=== PATIENT | female | born 2000 | race Caucasian/White ===

== ENCOUNTER 2024-08-16 12:17 | Inpatient (IN) | payer SELFPAY ==
[2024-08-16] VITALS (32 sets, daily range): BP systolic 111–133; BP diastolic 64–87; PULSE 76–116; RESP 15–18; TEMP 36.3–37.1; O2SAT 91–100
[2024-08-16] MEDS: Lactated Ringers 1,000 ML 50 ML IV (12:20)
--- NOTE | 2024-08-16 12:30 | PCM.HP.OB ---
HPI - General General Date of Admission: 08/16/24 Date of Service: 08/16/24 Chief Complaint: 41+ Week Intrauterine with Decelerations during Home HPI Narrative ROSY PAULINO, is a 24 F G1, P0 who presents with her hspt tutor. She is at approximately 41+ weeks gestation and was complete at home after starting labor in the middle of the night. She was noted to have some decelerations down to the 60s and given this her hspt tutor brought her to the hospital for further management. She denies any medical problems and has had no ultrasound during her or any other care or lab work done. Chief Executive Officer indicates that her membranes are intact and that she is at 9 cm to complete at present. Maternal Data Information Final TYSON: 08/03/24 Final TYSON Source: LMP Gestational age: 41 weeks 6 days gestation PFSH PFSH no medical history ROS Constitutional Constitutional: Reports systems reviewed and no addt'l complaints, except as documented and as per HPI Vital Signs Vital Signs Vital Signs: Afebrile, vital signs stable Physical Exam Const alert, oriented x3 and no apparent distress Constitutional Narrative: In active labor HEENT normocephalic Neck full ROM Resp normal respiratory effort, no retractions and no use of accessory muscles Cardio regular rate GI GI Narrative: Abdomen size is appropriate for gestational age Extremity normal to inspection, full ROM, no clubbing, cyanosis or edema and no calf tenderness Neuro moves all extremities, no focal motor deficits and no sensory deficits noted Psych mental status grossly normal, affect normal, speech normal and activity/motor behavior normal Labs Labs Labs: No Data to Display Assessment & Plan (1) No care in current : PLAN: Term intrauterine with some decelerations during home . Will start IV and gather labs. No significant medical history. heart tones reactive upon presentation. Membranes intact. Expect spontaneous vaginal delivery. Discussed possibility of needing to proceed with vacuum extraction or even section if decelerations resume. All questions were answered.
[2024-08-16 12:55] LABS: Absolute Lymphocyte Count 1.84 X10^3/uL (0.83-4.51); Absolute Neutrophil Count 12.5 X10^3/uL (2.0-7.7); Basophil# 0.04 X10^3/uL; Basophil% 0.3 % (0-1); Eosinophil# 0.01 X10^3/uL; Eosinophils% 0.1 % (0-5); Hemoglobin 13.5 g/dL (12.0-15.0); Lymphocyte # 1.84 X10^3/ul (0.83-4.51); Lymphocyte % 12.1 % (19-41); Mean Corp Hgb Conc 35.5 g/dL (32-36); Mean Corpuscular Hgb 31.8 pg (27.0-32.0); Mean Corpuscular Volume 89.6 fL (81-99); Mean Platelet Vol. 10.8 fl (6.2-12.0); Monocyte# 0.76 X10^3/uL; NRBC Flagged by Analyzer 0 % (0-5); Neutrophil # 12.52 X10^3/uL (2.7-7.7); Neutrophil % 82.1 % (47-70); Platelet Count 235 K/mm3 (150-450); RBC Distribution Width CV 11.8 % (11.6-14.6); RBC Distribution Width SD 38.1 fl (35.1-43.9); Red Blood Count 4.24 M/mm3 (4.2-5.4); White Blood Count 15.2 K/mm3 (4.4-11.0)
[2024-08-16 13:31] LABS: ALB/GLOB Ratio 0.7 RATIO (0.9-2.4); AST(SGOT) 26 U/L (15-37); Alanine Aminotransfer ALT/SGPT 25 U/L (13-56); Albumin, Serum 2.7 g/dL (3.2-5.0); Alkaline Phosphatase 183 U/L (45-117); Anion Gap 13 (5-15); BUN 7 mg/dL (7-18); BUN/Creat Ratio 14.2 RATIO (10-20); Chloride 98 mmol/L (98-107); Creatinine, Serum 0.49 mg/dL (0.55-1.02); EST Glomerular Filtration Rate 167 mL/min (>60); Est Glom Filt Rate - Afr Amer 201 mL/min (>60); Globulin 3.8 g/dL (2.2-4.2); Glucose 93 mg/dL (74-106); Potassium 3.3 mmol/L (3.5-5.1); Protein, Total 6.5 g/dL (6.4-8.2); Sodium Level 131 mmol/L (136-145)
[2024-08-16 14:00] LABS: HIV - WCH Non-Reactive (Nonreactive); Rubella IgG Non-Reactive (Nonreactive); Syphilis Antibodies Non-reactive
[2024-08-16 14:08] LABS: Protein, Urine (Random) 20.1 mg/dL (<11.9); Protein:Creat Ratio 948 mg/g CRE (0-200)
[2024-08-16 14:41] LABS: Hepatitis B Surface Antigen Non-Reactive (Nonreactive); Hepatitis C Antibody Non-Reactive (Nonreactive)
[2024-08-16] MEDS: LACTATED RINGERS 500 ML 999 ML IV (15:44)
[2024-08-16 16:26] LABS: Amphetamine Urine VISTA NEGATIVE (<1000 ng/mL); Barbiturate Urine VISTA NEGATIVE (< 200 ng/mL); Benzodiazepine Urine VISTA NEGATIVE (< 200 ng/mL); Cocaine Urine VISTA NEGATIVE (< 300 ng/mL); Ecstacy Urine VISTA NEGATIVE (< 500 ng/mL); Methadone Urine VISTA NEGATIVE (< 300 ng/mL); Opiates Urine NEGATIVE (< 300 ng/mL); PCP Urine NEGATIVE (< 25 ng/mL); THC Urine VISTA NEGATIVE (< 50 ng/mL); Vista UDS pH Range 7
[2024-08-16 16:49] LABS: Hemoglobin A1c 4.7 % (3.8-5.6)
[2024-08-16] MEDS: Oxytocin 10 UNITS/ML Vial IM (16:51)
--- NOTE | 2024-08-16 17:09 | EX.PCM.OBVAG ---
Vaginal Delivery Maternal Presentation Maternal Presentation: Active Labor Vaginal Delivery Information Procedure Performed: Spontaneous Vaginal Delivery Surgeon/Practitioner: Jhony Zambrano Date of Procedure: 08/16/24 Pre-Procedure Diagnosis: IUP in Labor; No Care Post-Procedure Diagnosis: IUP in Labor; No Care Type of anesthesia: Local with 1% Lidocaine Estimated Blood Loss: 250 cc Findings Description of procedure: Spontaneous vaginal delivery of a viable female infant from an occiput anterior presentation with clear amniotic fluid and normal three-vessel placenta. Terminal meconium fluid noted. No episiotomy. First-degree midline laceration repaired with 3-0 Rapide suture under local anesthesia. Pediatrics present for the delivery and baby required suctioning. No shoulder dystocia and no complications. Delivery physician: Jhony Zambrano MD. Presentation: Vertex Amniotic Membrane Rupture Type: Artificial Amniotic Fluid Description: Clear Placental Delivery Description: Spontaneous Placenta Disposition: [facility] Cord Vessel Description: 3 Vessels Cord Entanglement: None Cord Gases: ABG and VBG A Gender: Female Delayed Cord Clamping: Yes Post Vaginal Deli Medications given after delivery: IM Pitocin (Patient refused IV Pitocin) Episiotomy Description: None Laceration: Midline and 1st degree Complication Complications: No
[2024-08-16] MEDS: Lidocaine 1% (20 ml mdv) 20 ML Vial INFILT (17:15)
[2024-08-17 02:55] VITALS: BP 115/73; PULSE 83; RESP 16; TEMP 36.6; O2SAT 98
[2024-08-17] MEDS: Benzocaine/Lanolin/Aloe Vera 85 GM Spray 1 SPRAY TOPICAL (08:00)
--- NOTE | 2024-08-17 09:18 | PCM.PN.OB ---
Subjective Subjective Patient without complaints. Minimal vaginal bleeding reported. Baby will need to stay until tomorrow. No PIH symptoms reported. Objective Data Objective Data Vital Signs: Vital Signs Temp Pulse Resp BP Pulse Ox O2 Del Method 97.8 F 83 16 115/73 98 Room Air 08/17/24 02:55 08/17/24 02:55 08/17/24 02:55 08/17/24 02:55 08/17/24 02:55 08/16/24 23:21 Oxygen Delivery Method Room Air Intake & Output: Intake and Output for Last 24 Hours 08/15/24 08/16/24 08/17/24 23:59 23:59 23:59 Intake Total 672.5 / 672.5 Output Total 250 / 250 Balance 422.5 / 422.5 Lab / Micro Data 08/16/24 12:20 08/16/24 12:20 Labs: Laboratory Results - last 24 hr 08/16/24 12:20: WBC 15.2 H, RBC 4.24, Hgb 13.5, Hct 38.0, MCV 89.6, MCH 31.8, MCHC 35.5, RDW Std Deviation 38.1, RDW Coeff of Renate 11.8, Plt Count 235, MPV 10.8, Immature Gran % (Auto) 0.400, Neut % (Auto) 82.1 H, Lymph % (Auto) 12.1 L, [place] % (Auto) 5.0, Eos % (Auto) 0.1, Baso % (Auto) 0.3, Absolute Neuts (auto) 12.5 H, Absolute Lymphs (auto) 1.84, Nucleated RBC % 0, Sodium 131 L, Potassium 3.3 L, Chloride 98, Carbon Dioxide 19.0 L, Anion Gap 13, BUN 7, Creatinine 0.49 L, Est GFR (MDRD) Af Amer 201, Est GFR (MDRD) Non-Af 167, BUN/Creatinine Ratio 14.2, Glucose 93, Hemoglobin A1c 4.7, Calcium 9.0, Total Bilirubin 0.30, AST 26, ALT 25, Alkaline Phosphatase 183 H, Total Protein 6.5, Albumin 2.7 L, Globulin 3.8, Albumin/Globulin Ratio 0.7 L, Syphilis Total Ab Non-reactive, Hep Bs Antigen Non-Reactive, Hepatitis C Antibody Non-Reactive, HIV 1&2 Antibody Non-Reactive, Rubella IgG Antibody Non-Reactive, Blood Type A POSITIVE, Antibody Screen NEGATIVE 08/16/24 13:35: U Random Total Protein 20.1 H, Urine Creatinine 21.20, Protein/Creatinin Ratio 948 H, Urine Opiates Screen NEGATIVE, Urine Methadone Screen NEGATIVE, Ur Barbiturates Screen NEGATIVE, Ur Phencyclidine Scrn NEGATIVE, Ur Amphetamines Screen NEGATIVE, MDMA (Ecstasy) Screen NEGATIVE, U Benzodiazepines Scrn NEGATIVE, Urine Cocaine Screen NEGATIVE, U Cannabinoids Screen NEGATIVE, Ur Drug Screen Comment Micro: Microbiology 08/16/24 12:25 Urine, Clean Catch Chlamydia/Neisseria (PCR) - Final 08/16/24 12:20 Genital vaginal Group B Streptococcus (PCR) - Final Streptococcus Group B Assessment & Plan (1) Vaginal delivery: PLAN: Doing well day #1 status post routine spontaneous vaginal delivery. Continuing present care. Anticipate discharge to home tomorrow.
[2024-08-17 13:24] VITALS: BP 105/69; PULSE 86; RESP 16; O2SAT 97
[2024-08-17 17:49] VITALS: BP 121/79; PULSE 80; RESP 16; TEMP 36.7; O2SAT 98
[2024-08-17 19:30] VITALS: BP 114/75; PULSE 89; RESP 16; TEMP 36.9; O2SAT 98
[2024-08-18 03:19] VITALS: BP 117/75; PULSE 71; RESP 16; O2SAT 98
[2024-08-18 07:31] VITALS: BP 118/79; PULSE 81; RESP 16; O2SAT 99
--- NOTE | 2024-08-18 07:46 | PCM.PN.OB ---
Subjective Subjective Patient doing well without complaints. Tolerating PO. Ambulating and voiding without difficulty. Patient pumping/ SCN. Denies chest pain, shortness of breath, calf pain/swelling, fevers, chills, lightheadedness. Objective Data Objective Data Vital Signs: Vital Signs Temp Pulse Resp BP Pulse Ox O2 Del Method 98.5 F 81 16 118/79 99 Room Air 08/17/24 19:30 08/18/24 07:31 08/18/24 07:31 08/18/24 07:31 08/18/24 07:31 08/18/24 07:31 Oxygen Delivery Method Room Air Intake & Output: Intake and Output for Last 24 Hours 08/16/24 08/17/24 08/18/24 23:59 23:59 23:59 Intake Total 672.5 / 672.5 Output Total 250 / 250 Balance 422.5 / 422.5 Lab / Micro Data 08/16/24 12:20 08/16/24 12:20 Micro: Microbiology 08/16/24 12:25 Urine, Clean Catch Chlamydia/Neisseria (PCR) - Final 08/16/24 12:20 Genital vaginal Group B Streptococcus (PCR) - Final Streptococcus Group B Physical Exam Const alert and oriented x3 HEENT normocephalic Eyes PERRL Neck full ROM Resp normal respiratory effort GI soft to palpation GI Narrative: FF below U Assessment & Plan (1) Vaginal delivery: COMMENT: 08/16/24 JW girl Layla (2) No care in current : QUALIFIERS: Trimester: third trimester Qualified Code(s): O09.33 - Supervision of with insufficient care, third trimester PLAN: Plan s/p PPD # 2 1. routine post delivery care 2. breast feeding- support given 3. rh positive 4. rubella immune 5. hotel status today.
== END 2024-08-18 11:30 | disposition home or self-care (01) | DRG 807 ==
LOC: WPOUT 12:19 → WP 12:19
PROVIDERS: Admitting Provider Obstetrics & Gynecology; Referring Provider Obstetrics & Gynecology; Visit Provider Obstetrics & Gynecology
DX: O76 Abnormality in fetal heart rate and rhythm complicating labor and delivery (principal); Z37.0 Single live birth; O48.0 Post-term pregnancy; O99.824 Streptococcus B carrier state complicating childbirth; O70.0 First degree perineal laceration during delivery; O77.0 Labor and delivery complicated by meconium in amniotic fluid; Z3A.41 41 weeks gestation of pregnancy
CPT/HCPCS: 59025; 59050; 80053; 80307; 82570; 83036; 84156; 85025; 86703; 86762; 86780; 86803; 86850; 86900; 86901; 87340; 87491; 87591; 87653